=== PATIENT | female | born 1975 | race Caucasian/White ===

== ENCOUNTER 2018-02-07 23:04 | Emergency (ER) | payer OTHER ==
[~2018-02-07] VITALS: Ht 152.4 cm; Wt 66.4 kg
[2018-02-07 23:56] VITALS: Ht 152.4 cm; Wt 66.4 kg
[2018-02-08 03:50] LABS: microscopic required? NO
[2018-02-08 03:59] LABS: urine erythrocyte NEGATIVE (NEGATIVE)
[2018-02-08 04:07] LABS: BASOPHIL % 0.5 % (0-2); PLATELET COUNT 340 x10^3mcL (130-400); RED CELL DISTRIBUTION WIDTH 12.8 % (11.5-14.5)
[2018-02-08 04:17] LABS: CALCIUM 8.5 mg/dL (8.5-10.1); CHLORIDE SERUM 105 mmol/L (98-107); CREATININE SERUM 0.6 mg/dL (0.6-1.0); GFR1 > 60 mL/min; GLUCOSE SERUM 111 mg/dL (74-106); POTASSIUM SERUM 3.7 mmol/L (3.5-5.1); SODIUM SERUM 138 mmol/L (136-145)
[2018-02-08 04:21] LABS: ALKALINE PHOSPHATASE 107 U/L (46-116); ALT/SGPT 40 U/L (14-59); AST/SGOT 26 U/L (15-37); BILIRUBIN TOTAL 0.5 mg/dL (0.20-1.00); LIPASE 107 IU/L (73-393); TOTAL PROTEIN, SERUM 7.3 g/dL (6.4-8.2)
[2018-02-08 04:22] LABS: ALBUMIN 3.3 g/dL (3.4-5.0)
[2018-02-08 07:02] VITALS: BP 107/57
== END 2018-02-08 07:16 | disposition home or self-care (01) ==
LOC: ED 23:04
PROVIDERS: Emergency Medicine Emergency Medical Services
DX: K57.92 Diverticulitis of intestine, part unspecified, without perforation or abscess without bleeding (principal)
CPT/HCPCS: J1885; Q9967